=== PATIENT | female | born 1965 | race Caucasian/White ===

== ENCOUNTER 2017-06-20 13:09 | Observation (INO) ==
[2017-06-20] MEDS ORDERED: NITROGLYCERIN SL 0.4 MG TABLET SL PRN (13:40)
[2017-06-20] MEDS ORDERED: NITROGLYCERIN 2% OINT 1 INCH/GM PACK TOP STA (13:40)
[2017-06-20] MEDS ORDERED: MORPHINE 2 MG/1 ML SYRINGE IV PRN (13:40)
[2017-06-20] MEDS ORDERED: ASPIRIN 325 MG TABLET PO STA (13:40)
[2017-06-20] MEDS ORDERED: ONDANSETRON 4 MG/2 ML VIAL IV PRN (13:40)
--- NOTE | 2017-06-20 13:44 | Emergency Department Note ---
Nick Mars Emily, am scribing for, and in the presence of, John Tinajero MD 13:41. Tanvi Mars James D, MD, personally performed the services described in this documentation, ascribed by Blossom Romero in my presence, and it is both accurate and complete . Arrival - Arrival Chief Complaint: Chest Pain Stated Complaint: chest pains ED Nursing Triage Note: c/o squeezing pain in lt side of chest onset about 0600 this am Mode of Arrival: Ambulatory Limitations: No Limitations Source: Patient Time Seen by Provider: 06/20/17 13:33 - History of Present Illness HPI Narrative: Pt is a 51 y/o female who came to ED with c/o left sided chest pain that started last night but worsened today. Pt notes pain is nonradiating and is waxing and wanning with starting out as pinching pain first and now squeezing. Pt denies SOB, nausea or left arm pain. She denies having DM or HTN. PMHx of HLD. Pt was recently weened off of Adderall. Onset (ago): hour(s) Consistency: constant Severity: mild, moderate Severity scale (1-10): 4 Quality: aching (pinching ) Allergies/Adverse Reactions: Allergies Allergy/AdvReac Type Severity Reaction Status Date / Time No Known Allergies Allergy Verified 12/16/16 13:55 Home Medications: Home Medications Medication Instructions Recorded Confirmed Type Butalb/Acetaminophen/Caffeine 1 each PO Q6-8H #20 capsule 12/16/16 Rx [Fioricet 50-300-40 mg Capsule] Review of System - Review of System 12 point system: reviewed and no additional remarkable complaints except as stated - Review of System Constitutional: Absent: fever Respiratory: Absent: cough, respiratory distress Cardiovascular: Present: chest pain Gastrointestinal: Absent: abdominal pain, nausea, vomiting, diarrhea Musculoskeletal: Absent: arm pain, back pain Skin: Absent: rash Neurological: Absent: headache Medical,Surgical,& Family Hx - Medical History Psychological: History of: ADHD Endocrine: History of: Dyslipidemia, Thyroid Disorder (Hypothyroid) - Social History Smoking Status: Never smoker Frequency of Alcohol Use: None Type of Drug Use: None Marital Status: Lives With:: Spouse Functional capacity: independent ambulation Exam Vital Signs: Vital Signs Temperature 97.6 F 06/20/17 13:12 Pulse Rate 81 06/20/17 13:12 Respiratory Rate 18 06/20/17 13:12 Blood Pressure 156/92 06/20/17 13:12 O2 Sat by Pulse Oximetry 99 06/20/17 13:12 GENERAL: This is a well-nourished well-developed white female in no apparent distress. VITAL SIGNS: Reviewed HEENT: Head is atraumatic and normocephalic. Pupils are equal round react to light. Extraocular movements are intact. Oropharynx is benign with moist mucous membranes. NECK: Neck is soft and supple without tenderness. There are no masses. There is no lymphadenopathy. LUNGS: Lungs are clear to auscultation. Chest rises symmetrically. There is no chest wall tenderness. CV: Heart is regular rate and rhythm without murmurs rubs or gallops. ABDOMEN: Abdomen is soft, nontender to palpation. There are no abdominal abnormal masses palpated. There is no organomegaly. Bowel sounds are present and active. SKIN: Skin is warm and dry. No rash. EXTREMITIES: Patient has full range of motion without tenderness. There is no pedal edema. NEUROLOGIC: Awake alert and oriented 4. Cranial nerves II through XII are grossly intact. Motor is 5 over 5 in all extremities bilaterally. Course - Consultations Consultation #1: Discussed with hospitalist. Patient will be admitted to their service. Time: 15:39 Results - Labs CBC & BMP: 06/20/17 13:24 Lab Results: I have reviewed the patients labs Labs: Laboratory Tests 06/20/17 13:24 WBC 10.9 RBC 4.65 Hgb 13.4 Hct 39.7 MCV 85.4 L Plt Count 311 Laboratory Tests 06/20/17 13:24 Urine Color Yellow Urine Appearance Clear Urine pH 5.0 Ur Specific [place] 1.008 Urine Blood Negative Urine Nitrate Negative Urine Urobilinogen < 2.0 H Urine Leukocytes Trace Urine RBC 1 Urine WBC 1 Ur Squamous Epith Cells Occasional Urine Mucus Occasional - EKG EKG results: interpreted by ERMD - Impressions EKG: Normal sinus rhythm with rate of 70, normal ST-T waves. Normal axis. EKG #2: Normal sinus rhythm with a rate of 67, normal axis, normal ST-T waves. - Diagnostic Findings Procedure: Chest x-ray: image reviewed by me, report reviewed by me (No cardiomegaly, no pleural effusions, no infiltrates.) Disposition Clinical Impression: Chest pain Case discussed with: patient Disposition: Still a Patient Condition: Stable
[2017-06-20] MEDS ORDERED: NITROGLYCERIN 2% OINT 1 INCH/GM PACK TOP ONE (13:51)
[2017-06-20] MEDS ORDERED: ASPIRIN 325 MG TABLET ONE (13:52)
--- NOTE | 2017-06-20 13:57 | XRay Report ---
2 view chest. Indication: Chest pain. Comparison: January 12, 2011. The heart and mediastinal contours are unremarkable. The pulmonary vasculature is normal. There is no consolidation, pneumothorax, or pleural effusion. The osseous structures are unremarkable. Impression: No abnormality is seen. PROCEDURE INTERPRETED AT [facility] DEPARTMENT OF RADIOLOGY Final Report Signed by: Dr. Gloria Hernandez
[2017-06-20 14:00] LABS: Basophils # 0.1 10*3/uL (0.0-0.2); Basophils % 0.5 % (0.0-0.8); Eosinophils # 0.1 10*3/uL (0.0-0.87); Eosinophils % 0.5 % (0.00-10.9); Hematocrit 39.7 VOL% (35.7-47.0); Hemoglobin 13.4 GM/DL (12.0-16.0); Immature Granulocytes % 0.3 %; Immature Granulocytes Absolute 0.03 #; Lymphocytes # 3.4 10*3/uL (1.4-4.0); Lymphocytes % 31.4 % (21.3-54.2); Mean Corpuscular HGB Conc 33.8 GM/DL (32-36); Mean Corpuscular Hemoglobin 29 PG (27-34); Mean Corpuscular Volume 85.4 FL (87-102); Mean Platelet Volume 9.8 FL (9.6-12.0); Monocytes # 0.5 10*3/uL (0.11-0.8); Monocytes % 4.1 % (1.7-12.7); Neutrophils # 6.9 10*3/uL (1.4-7.4); Neutrophils % 63.2 % (38.7-73.9); Platelet Count 311 T/CUMM (130-400); Red Blood Count 4.65 MC/CUMM (3.8-5.5); Red Cell Distribution Width 13.2 % (9.3-17.3); White Blood Count 10.9 T/CUMM (4-12)
[2017-06-20 14:36] LABS: Apearance,Urine CLEAR (Clear); Bilirubin,Urine Negative (Negative); Blood, Urine Negative (Negative); Glucose,Urine (UA) Negative (Negative); Ketones,Urine Negative (Negative); Mucus,Urine Occasional /LPF (Occasional); Nitrite,Urine Negative (Negative); Protein,Urine Negative; RBC,Urine 1 /HPF (0-4); Squamous Epithelial Cell,Urine Occasional /HPF (0-10); Urine Color Yellow (Yellow); Urine Specific Gravity 1.008 (1.001-1.035); Urine Urobilinogen < 2.0 EU/DL (0.2-1.0); WBC,Urine 1 /HPF (0-6)
[2017-06-20 14:55] LABS: Barbiturates Screen,Urine Negative (Negative); Benzodiazepines Screen,Urine Negative (Negative); Cannabinoid Screen,Urine Negative (Negative); Opiate Screen,Urine Negative (Negative); Phencyclidine Screen,Urine Negative (Negative)
[2017-06-20 16:14] LABS: Calcium 9.3 MG/DL (8.5-10.1); Magnesium 2.4 MG/DL (1.8-2.4); Osmolality,Calculated 278.5 MOS/KG (273-304); Potassium 3.9 MMOL/L (3.5-5.1)
[2017-06-20 16:19] LABS: Troponin I Only < 0.015 NG/ML (0.00-0.045)
--- NOTE | 2017-06-20 16:24 | Hospitalist History & Physical ---
<Caleb Maldonado - Last Filed: 06/20/17 16:10> Assessment and Plan - Time spent with patient Time spent with patient: Greater than 30 minutes (1) Chest pain Status: Acute Assessment and plan: Admit to telemetry for observation. Serial troponins and EKGs. Repeat CBC and BMP in a.m. Possible echocardiogram. Current Visit: Yes (2) Hypothyroid Status: Acute Assessment and plan: Continue home medications Current Visit: Yes (3) ADHD (attention deficit hyperactivity disorder) Status: Acute Assessment and plan: Patient notes a history of ADHD and recently being weaned off of her Adderall. Current Visit: Yes History of Present Illness Chief complaint: chest pain History of present illness: Ms. Guzman is a 51 year old white female with risk factors significant for hyperlipidemia, hypothyroidism and ADHD who presents to the ED today with complaints of progressively worsening chest pain having onset last night around 2200. The patient states that the pain initially began as "needle pricking" in her left chest. She ignored the pain thinking it would subside and went on to work this morning. She reports that the pain progressed to a "intermittently squeezing pressure" localized to the left chest wall. 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 She went home before she and her decided to come to the ED. On exam, the patient is in moderate distress and reports and shooting pain in her left anterior neck now. She admittedly has a "high tolerance for pain" but rates her pain as a 10/ 10 now. She denies headache, fever, change in vision, diaphoresis, SOB, pain on inspiration, abdominal pain, change in appetite, N/V, BRBPR, numbness or tingling in the upper and lower extremities bilaterally. Lab work so far is unremarkable. EKG shows NSR. CXR shows no acute cardiopulmonary abnormality. Case has been discussed with Dr. Tinajero, ER physician, and Dr. Manuel, admitting physician, and the patient will be admitted for observation and treatment. She is a FULL CODE. Home medications have been reviewed and reconciled. Home Medications Medication Instructions Recorded Confirmed Type Butalb/Acetaminophen/Caffeine 1 each PO Q6-8H #20 capsule 12/16/16 Rx [Fioricet 50-300-40 mg Capsule] Allergies Allergy/AdvReac Type Severity Reaction Status Date / Time No Known Allergies Allergy Verified 12/16/16 13:55 Medical,Surgical,& Family Hx - Medical History Psychological: History of: ADHD Endocrine: History of: Dyslipidemia, Thyroid Disorder (Hypothyroid) - Family History Family History: Reports;: Family Hypertension - Social History Smoking Status: Never smoker Frequency of Alcohol Use: Rarely Type of Drug Use: None Marital Status: Lives With:: Spouse Functional capacity: independent ambulation 12 point system: reviewed and no additional remarkable complaints except as stated Exam - Constitutional Vitals: Period Temp Pulse Resp BP Sys/Schneider Pulse Ox Last 24 Hr 97.6 F-97.6 F 81-81 18-18 156-156/92-92 99 Exam: General appearance: overweight, no acute distress - Head Head exam: Present: normocephalic, atraumatic - Eye Eye exam: Present: EOMI. Absent: conjunctival injection, nystagmus Pupils: Present: LEN, normal accommodation - ENT ENT exam: Present: normal exam, normal external ear exam - Neck Neck exam: Present: normal inspection. Absent: lymphadenopathy, tenderness, thyromegaly - Respiratory Respiratory exam: Present: clear to auscultation bilaterally. Absent: rales, rhonchi, wheezes - Cardiovascular Cardiovascular exam: Present: regular rate and rhythm. Absent: carotid bruit, gallop, rubs - GI/Abdominal GI/Abdominal exam: Present: normal bowel sounds. Absent: ascites, distended, mass - Extremities Exam Extremities exam: Present: normal inspection, normal capillary refill. Absent: edema - Back Exam Back exam: Absent: CVA tenderness (L), CVA tenderness (R) - Neurological Exam Neurological exam: Present: alert, oriented X3, CN II-XII intact, reflexes normal - Psychiatric Psychiatric exam: Present: normal affect, normal mood - Skin Skin exam: Present: normal color, warm, dry Results - Labs CBC & BMP: 06/20/17 13:24 Lab Results: I have reviewed the past 24 hour labs - EKG EKG results: interpreted by JAK, sinus rhythm - Diagnostic Findings Procedure: Chest x-ray: image reviewed by me, report reviewed by me ( unremarkable) <Rodney Manuel - Last Filed: 06/20/17 17:01> History of Present Illness History of present illness: Ms. Guzman is a 51 year old female Exam - Constitutional Vitals: Period Temp Pulse Resp BP Sys/Schneider Pulse Ox Last 24 Hr 97.6 F-97.6 F 81-81 18-18 156-156/92-92 99 Results - Labs CBC & BMP: 06/20/17 13:24 06/20/17 13:24 - Impressions Patient seen and examined. I have reviewed H&P by PORSPER Maldonado, and I agree with the information. Diagnosis: Acute chest pain, likely non cardiac: agree with evaluation for cardiac ischemia. DVT and GI prophalaxis.
[2017-06-20] MEDS ORDERED: ACETAMINOPHEN 325 MG TABLET PO PRN (16:34)
[2017-06-20] MEDS ORDERED: MAGNESIUM SULF RIDER 2 GM in PREMIX 1 EACH IV PRN (16:34)
[2017-06-20] MEDS ORDERED: MAGNESIUM SULF RIDER 4 GM in PREMIX 1 EACH IV PRN (16:34)
[2017-06-20] MEDS ORDERED: POTASSIUM CHLORIDE 20 MEQ TABLET PO PRN ×2 (16:34)
--- NOTE | 2017-06-20 16:43 | Hospitalist History & Physical ---
History of Present Illness Chief complaint: chest pain History of present illness: Ms. Guzman is a 51 year old female who presents with non-radiating, squeezing , left sided chest pain that started last night while in bed. Chest pain is constant but waxes and wanes. It got worst today while at work. She took two aspirin and decided to come into the ER for further evaluation. She denies any SOB/n,v/diaphoresis/fevers/chills/cough/recent prolonged car or plane ride, recent heavy lifting, and association with eating. She denies any excessive belching. She has been eating and drinking without any problems. She denies any calf pain. While in the ER, she was given nitrobid ointment and aspirin. Blood pressure was initially elevated but it has improved. Home Medications Medication Instructions Recorded Confirmed Type Butalb/Acetaminophen/Caffeine 1 each PO Q6-8H #20 capsule 12/16/16 Rx [Fioricet 50-300-40 mg Capsule] Allergies Allergy/AdvReac Type Severity Reaction Status Date / Time No Known Allergies Allergy Verified 12/16/16 13:55 Medical,Surgical,& Family Hx - Medical History Psychological: History of: ADHD Neurology: History of: Migraine Endocrine: History of: Dyslipidemia, Thyroid Disorder (Hypothyroid) - Surgical History Abdominal Surgeries: Surgical HX of: Appendectomy, Cholecystectomy Reproductive Surgeries: Surgical HX of;: Hysterectomy - Family History Family History: Reports;: Family Diabetes, Family Hypertension Denies;: Family Heart Disease, Family Stroke - Social History Smoking Status: Never smoker Frequency of Alcohol Use: Rarely Type of Drug Use: None Marital Status: Functional capacity: independent ambulation 12 point system: reviewed and no additional remarkable complaints except as stated (reviewed an no additional remarkable complaints) - Constitutional Constitutional: Present: as per HPI Exam - Constitutional Vitals: Period Temp Pulse Resp BP Sys/Schneider Pulse Ox Last 24 Hr 97.6 F-97.6 F 81-81 18-18 156-156/92-92 99 General appearance: no acute distress, over weight - Head Head exam: Present: normal inspection, normocephalic, atraumatic - Eye Eye exam: Present: EOMI Pupils: Present: LEN - ENT ENT exam: Present: normal exam, normal oropharynx - Respiratory Respiratory exam: Present: clear to auscultation bilaterally. Absent: rales, rhonchi, stridor - Cardiovascular Cardiovascular exam: Present: regular rate and rhythm. Absent: diastolic murmur , systolic murmur - GI/Abdominal GI/Abdominal exam: Present: normal bowel sounds, soft. Absent: tenderness, rebound - Extremities Exam Extremities exam: Present: other (no calf tenderness). Absent: edema - Neurological Exam Neurological exam: Present: alert, oriented X3 - Psychiatric Psychiatric exam: Present: normal affect, normal mood - Skin Skin exam: Present: normal color. Absent: rash Results - Labs CBC & BMP: 06/20/17 13:24 06/20/17 13:24 - EKG EKG results: WNL - Impressions 1. Acute chest pain, sounds to be non cardiac. So far EKG shows no ischemic changes. 1st troponin level is normal. 2. Elevated CPK: mild and asymptomatic; likely 2nd to statin use; she does not know what statin she is on but is on one; monitor levels 3. Hyperglycemia: check hba1c 4. Elevated blood pressure: now better with nitropaste; monitor 5. Co morbid conditions: h/o hypothyroidism, dyslipidemia Plan: admit to telemetry; evaluate for cardiac ischemia; if rule out, outpatient stress test; trend CPK levels as well; fasting lipids; home medications as appropriate. DVT and GI prophalaxis. CODE: FULL Disposition: expect a short stay - Diagnostic Findings Procedure: Chest x-ray: image reviewed by me (no acute abnormality)
[2017-06-20] MEDS: ENOXAPARIN 40 MG/0.4 ML SYRINGE SUBCUT SCH (17:35)
[2017-06-20] MEDS: SODIUM CHLORIDE 0.45% 1,000 ML IV SCH (17:35)
[2017-06-20] MEDS: ASPIRIN EC 81 MG TABLET PO SCH (17:38)
[2017-06-21] MEDS: SODIUM CHLORIDE 0.45% 1,000 ML IV SCH ×4 (02:49→23:19)
[2017-06-21 05:07] LABS: Basophils % 0.5 % (0.0-0.8); Eosinophils # 0.2 10*3/uL (0.0-0.87); Eosinophils % 1.8 % (0.00-10.9); Hematocrit 38.1 VOL% (35.7-47.0); Hemoglobin 12.6 GM/DL (12.0-16.0); Immature Granulocytes % 0.1 %; Immature Granulocytes Absolute 0.01 #; Lymphocytes # 3.2 10*3/uL (1.4-4.0); Lymphocytes % 39.2 % (21.3-54.2); Mean Corpuscular HGB Conc 33.1 GM/DL (32-36); Mean Corpuscular Hemoglobin 28 PG (27-34); Mean Corpuscular Volume 85.8 FL (87-102); Mean Platelet Volume 9.8 FL (9.6-12.0); Monocytes # 0.5 10*3/uL (0.11-0.8); Neutrophils # 4.3 10*3/uL (1.4-7.4); Neutrophils % 52.4 % (38.7-73.9); Platelet Count 251 T/CUMM (130-400); Red Blood Count 4.44 MC/CUMM (3.8-5.5); Red Cell Distribution Width 13.2 % (9.3-17.3); White Blood Count 8.2 T/CUMM (4-12)
[2017-06-21 05:47] LABS: Calcium 8.6 MG/DL (8.5-10.1); Osmolality,Calculated 276.7 MOS/KG (273-304); Potassium 4.3 MMOL/L (3.5-5.1)
[2017-06-21 05:53] LABS: Risk Ratio 5.45; VLDL CHOLESTEROL 90.6 MG/DL
--- NOTE | 2017-06-21 06:03 | EKG Report ---
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
--- NOTE | 2017-06-21 07:17 | EKG Report ---
Stationary ECG Study 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
[2017-06-21] MEDS: ASPIRIN EC 81 MG TABLET PO SCH (09:37)
[2017-06-21] MEDS: PANTOPRAZOLE 40 MG TABLET PO SCH (09:39)
[2017-06-21 14:15] LABS: Free T4 (Free Thyroxine) 0.82 NG/DL (0.76-1.46); Thyroid Stimulating Hormone 0.556 uIU/ml (0.358-3.74)
[2017-06-21] MEDS: ENOXAPARIN 40 MG/0.4 ML SYRINGE SUBCUT SCH (16:27)
--- NOTE | 2017-06-21 16:37 | Hospitalist Progress Note ---
Assessment and Plan - Time spent with patient Time spent with patient: Greater than 30 minutes (1) Chest pain Status: Acute Assessment and plan: 06/21/2017: I have low clinical suspicion that patient's chest pain episode represents acute coronary syndrome. Recommend continued telemetry monitoring, cycle cardiac enzymes, follow-up repeat 12-lead EKG and echocardiogram. I requested cardiology consultation. Patient requests diagnostic left heart catheterization because she is concerned with the false negative nuclear medicine stress test rate. She is without any chest discomfort at the time of my interview and exam. Her is at bedside at the time of my interview and exam today. Patient's d-dimer is normal range making acute thromboembolism less likely to be the cause of patient's chest pain complaints. Current Visit: Yes (2) Hypothyroid Status: Chronic Assessment and plan: 06/21/2017: Patient has normal range TSH 0.556 and free T4 0.82. She has a history of hypothyroidism but records do not indicate that she takes Synthroid supplementation. Clarify this history. Current Visit: Yes (3) Dyslipidemia Status: Chronic Assessment and plan: 06/21/2017: Patient denies known history of dyslipidemia. Patient's fasting lipid panel measured today total cholesterol 218, LDL 115, HDL 40, triglycerides 453. I recommend the patient receive statin dosing and repeat lipid panel within the next 3 months. She should also receive instructions to improve dietary modification to further reduce LDL, total cholesterol, and triglycerides. Current Visit: Yes (4) ADHD (attention deficit hyperactivity disorder) Status: Chronic Assessment and plan: 06/21/2017: Patient states that she previously received Adderall but has not taken any stimulant medications since March 2017. She states that it was her personal choice to discontinue Adderall. Current Visit: Yes Hospitalist: Subjective Interval history: 06/21/2017: Patient is a 51-year-old female admitted for evaluation of squeezing left chest pressure episode. 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 Her known ischemic heart disease risk factors include dyslipidemia only. She previously smoked cigarettes but discontinued many years ago. Her chest pain resolved spontaneously. She cannot identify any precipitating or relieving factors. Exam - Constitutional Vitals: Period Temp Pulse Resp BP Sys/Schneider Pulse Ox Last 24 Hr 97.0 F-97.9 F 60-83 16-20 112-138/65-77 93-100 General appearance: normal weight - Head Head exam: Present: normal inspection - Eye Eye exam: Present: EOMI - ENT ENT exam: Present: normal exam - Neck Neck exam: Absent: meningismus, tenderness - Respiratory Respiratory exam: Present: clear to auscultation bilaterally. Absent: rales, stridor, wheezes - Cardiovascular Cardiovascular exam: Present: regular rate and rhythm, other (No extrasystole or significant murmur audible) - GI/Abdominal GI/Abdominal exam: Present: normal bowel sounds, soft. Absent: tenderness, rebound - Extremities Exam Extremities exam: Absent: calf tenderness, edema - Back Exam Back exam: Absent: CVA tenderness (L), CVA tenderness (R) - Neurological Exam Neurological exam: Present: alert, oriented X3 - Psychiatric Psychiatric exam: Present: normal affect, normal mood - Skin Skin exam: Present: normal color, warm. Absent: rash Results - Labs CBC & BMP: 06/21/17 04:46 06/21/17 04:46
--- NOTE | 2017-06-21 19:16 | Cardiology Consult Note ---
Jignesh Mars April, RN, am scribing for, and in the presence of, Jai Vasquez MD 19:14. Assessment and Plan - Time spent with patient Time spent with patient: Greater than 30 minutes (Due to assessment, planning, documentation, medication review) (1) Chest pain Status: Acute Assessment and plan: Initial assessment and plan June 21, 2017: Differential diagnosis of her chest pain would include coronary disease, GI, muscle skeletal cause. She is not tender in her chest. She is very worried this could be coronary disease. Her initial EKG had some equivocal repolarization changes Plan/records: Treat as if this may be ACS Follow EKGs Check echo Doppler I discussed with her about a heart catheter vs a treadmill/Cardiolite. She is considering it. She wants to think about it overnight. Will decide the morning Hydrate overnight N.p.o. after midnight. She may want to go ahead with heart cath to "know for sure". Lipids may need to be treated, especially in light of elevated hemoglobin A1c I will rediscuss with the patient in a.m. and we can decide what to do next. Thank you for allowing me to participate in this patient's care Current Visit: Yes (2) Dyslipidemia Status: Chronic Current Visit: Yes (3) ADHD (attention deficit hyperactivity disorder) Status: Chronic Current Visit: Yes (4) Hypothyroid Status: Chronic Current Visit: Yes History of Present Illness - Data of Consult Patient: new to practice Consult date: 06/21/17 Requesting Physician: Davis Dasilva III Primary care physician: Caridad Olivares - Consult Narrative Reason for consult: Chest pain History of present illness: Lead Database Administrator: Jr Vasquez PCP: Caridad Olivares NP Ms. 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 In 1998 she was referred for a PET scan related to some chest pain, but she says that it was found to be okay and she never had to have any follow-up. She denies ever having a heart catheterization. She has been on Adderall for 30 years and has been weaned off of this since early April of this year. Medical history includes ADHD, dyslipidemia, and thyroid disorder. Family history is positive for mother with cancer and diabetes. Surgical history includes appendectomy, hysterectomy, cholecystectomy, tonsillectomy. She reports she is a lifetime non-smoker and rarely uses alcohol. Two nights before admission she reports having some "sharp pinpricks" in the left side of her chest. Yesterday she began to have a squeezing type pressure to the left side of her chest. She denies any radiation and rates it a 10 on a scale of 1-10. She noted no triggers or alleviators. The pain is reproducible with deep breathing or palpation. She also reports that she was diaphoretic and nauseated with this. She denies any shortness of breath. She presented to the emergency department for further evaluation and said her pain did ease up some after the nitroglycerin patch was placed. However it continued to bother her some. She reports after IV fluid was started it continued to ease up and this morning became completely pain free. EKG shows sinus rhythm with heart rate of 67 and no evidence of ST changes. Her blood pressure was slightly elevated on admission at 156/92, is improved since then, it is now 133/77. cyber incident analyst currently shows sinus rhythm with heart rates in the 80s. Troponins been negative 3. D-dimer was negative. Cholesterol and triglycerides are elevated. She reports she has been on a statin at home but is unsure what it is. Lipitor 20 mg nightly has been started. Hemoglobin A1c noted to be elevated at 6.9. All other labs have been unremarkable. Chest x- ray without abnormality noted. Today she is seen resting in bed. She is awake alert and pleasant. She denies any chest pain, shortness of breath, palpitations, or dizziness. An echocardiogram has been ordered. CC: Davis Dasilva III - Home Medications and Allergies Home Medications: Home Medications Medication Instructions Recorded Confirmed Type Butalb/Acetaminophen/Caffeine 1 each PO Q6-8H #20 capsule 12/16/16 Rx [Fioricet 50-300-40 mg Capsule] Allergies/Adverse Reactions: Allergies Allergy/AdvReac Type Severity Reaction Status Date / Time No Known Allergies Allergy Verified 12/16/16 13:55 - Constitutional Constitutional: Present: as per HPI - EENT Eyes: Present: requires corrective lense. Absent: blurry vision Ears: Present: tinnitus. Absent: decreased hearing, ear pain Nose, mouth and throat: Absent: dysphagia, epistaxis, headache(s), neck pain - Cardiovascular Cardiovascular: Present: chest pain at rest, chest pain with activity, diaphoresis. Absent: dyspnea, dyspnea on exertion, edema, radiating jaw, neck or arm pain, lightheadedness, orthopnea, palpitations - Respiratory Respiratory: Absent: cough, dyspnea, hemoptysis, dyspnea on exertion, wheezing - Gastrointestinal Gastrointestinal: Present: diarrhea, nausea. Absent: abdominal pain, constipation, hematemesis, hematochezia, melena, vomiting - Genitourinary Genitourinary: Absent: dysuria, hematuria - Musculoskeletal Musculoskeletal: Absent: back pain, limited range of motion, muscle weakness - Neurological Neurological: Absent: abnormal gait, abnormal speech, confusion, dizziness, frequent falls, syncope - Psychiatric Psychiatric: Absent: anxiety, depression - Hematologic/Lymphatic Hematologic/Lymphatic: Present: easy bruising. Absent: easy bleeding Medical,Surgical,& Family Hx - Medical History Psychological: History of: ADHD Endocrine: History of: Dyslipidemia, Thyroid Disorder (Hypothyroid) - Surgical History HEENT Surgeries: Surgical HX of: Tonsilectomy & Adenoidectomy Abdominal Surgeries: Surgical HX of: Appendectomy, Cholecystectomy Reproductive Surgeries: Surgical HX of;: Hysterectomy - Family History Family History: Reports;: Family Cancer (MOTHER- BREAST CA), Family Diabetes ( MOTHER) - Social History Smoking Status: Never smoker Have you smoked in the last 12 months: No Frequency of Alcohol Use: Rarely Type of Drug Use: None Marital Status: Lives With:: Spouse Functional capacity: independent ambulation Physical Examination Vital Signs Temp Pulse Resp BP Pulse Ox 97.6 F 81 18 156/92 99 06/20/17 13:12 06/20/17 13:12 06/20/17 13:12 06/20/17 13:12 06/20/17 13:12 General: Present: Appears Well, No Apparent Distress HEENT: Present: PERRL, Mucus Membranes Moist Neck: Present: Supple Neck, Midline Trachea, No Bruit Cardiac: Present: Reg Rate and Rhythm, No Murmur Lungs: Present: Normal Breath Sounds, No Wheeze, Rales, Rhonchi Neuro: Absent: Resting Tremor, Essential Tremor Abdomen: Present: Soft, Active Bowel Sounds, Non-Tender. Absent: Distended Skin: Present: Bruising. Absent: Rash, Suspicious Lesions Extremities: Present: No Edema, Normal Upper Extr. Pulses, Normal Lower Extr. Pulses Result/EKG - Labs CBC & BMP: 06/21/17 04:46 06/21/17 04:46 Lab Results: I have reviewed the past 24 hour labs Labs: Laboratory Results - last 24 hr 06/20/17 06/20/17 06/20/17 13:24 13:24 13:24 WBC 10.9 RBC 4.65 Hgb 13.4 Hct 39.7 MCV 85.4 L MCH 29 MCHC 33.8 RDW 13.2 Plt Count 311 MPV 9.8 Neut % (Auto) 63.2 Lymph % (Auto) 31.4 [place] % (Auto) 4.1 Eos % (Auto) 0.5 Baso % (Auto) 0.5 Neut # (Auto) 6.9 Lymph # (Auto) 3.4 [place] # (Auto) 0.5 Eos # (Auto) 0.1 Baso # (Auto) 0.1 Immature Gran % 0.3 Nucleated RBC % 0.0 Immature Gran # 0.03 Nucleated RBCs # 0.00 Immature Plt Fraction 0.0 Sodium Potassium Chloride Carbon Dioxide Anion Gap BUN Creatinine GFR Calculation BUN/Creatinine Ratio Glucose Hemoglobin A1c Calculated Osmolality Calcium Magnesium Total Creatine Kinase CK-MB (CK-2) Troponin I Triglycerides Cholesterol LDL Cholesterol VLDL Cholesterol HDL Cholesterol Heart Disease Risk Ratio Urine Color Yellow Urine Appearance Clear Urine pH 5.0 Ur Specific [place] 1.008 Urine Protein Negative Urine Glucose (UA) Negative Urine Ketones Negative Urine Blood Negative Urine Nitrate Negative Urine Bilirubin Negative Urine Urobilinogen < 2.0 H Urine Leukocytes Trace Urine RBC 1 Urine WBC 1 Ur Squamous Epith Cells Occasional Urine Mucus Occasional Ur Culture Indicated? Not indicated Urine Opiates Screen Negative Ur Barbiturates Screen Negative Ur Phencyclidine Scrn Negative U Amphetamine/Methamph Negative U Benzodiazepines Scrn Negative U Cocaine Metab Screen Negative U Cannabinoids Screen Negative 06/20/17 06/20/17 06/20/17 13:24 13:24 13:24 WBC RBC Hgb Hct MCV MCH MCHC RDW Plt Count MPV Neut % (Auto) Lymph % (Auto) [place] % (Auto) Eos % (Auto) Baso % (Auto) Neut # (Auto) Lymph # (Auto) [place] # (Auto) Eos # (Auto) Baso # (Auto) Immature Gran % Nucleated RBC % Immature Gran # Nucleated RBCs # Immature Plt Fraction Sodium 139 Potassium 3.9 Chloride 104 Carbon Dioxide 29 Anion Gap 9.9 BUN 13 Creatinine 0.90 GFR Calculation 74 BUN/Creatinine Ratio 14.00 Glucose 130 H Hemoglobin A1c 6.9 H Calculated Osmolality 278.5 Calcium 9.3 Magnesium 2.4 Total Creatine Kinase 256 H CK-MB (CK-2) 3.8 H Troponin I < 0.015 Triglycerides Cholesterol LDL Cholesterol VLDL Cholesterol HDL Cholesterol Heart Disease Risk Ratio Urine Color Urine Appearance Urine pH Ur Specific [place] Urine Protein Urine Glucose (UA) Urine Ketones Urine Blood Urine Nitrate Urine Bilirubin Urine Urobilinogen Urine Leukocytes Urine RBC Urine WBC Ur Squamous Epith Cells Urine Mucus Ur Culture Indicated? Urine Opiates Screen Ur Barbiturates Screen Ur Phencyclidine Scrn U Amphetamine/Methamph U Benzodiazepines Scrn U Cocaine Metab Screen U Cannabinoids Screen 06/20/17 06/20/17 06/20/17 17:33 19:21 22:48 WBC RBC Hgb Hct MCV MCH MCHC RDW Plt Count MPV Neut % (Auto) Lymph % (Auto) [place] % (Auto) Eos % (Auto) Baso % (Auto) Neut # (Auto) Lymph # (Auto) [place] # (Auto) Eos # (Auto) Baso # (Auto) Immature Gran % Nucleated RBC % Immature Gran # Nucleated RBCs # Immature Plt Fraction Sodium Potassium Chloride Carbon Dioxide Anion Gap BUN Creatinine GFR Calculation BUN/Creatinine Ratio Glucose Hemoglobin A1c Calculated Osmolality Calcium Magnesium 2.6 H Total Creatine Kinase CK-MB (CK-2) Troponin I < 0.015 < 0.015 Triglycerides Cholesterol LDL Cholesterol VLDL Cholesterol HDL Cholesterol Heart Disease Risk Ratio Urine Color Urine Appearance Urine pH Ur Specific [place] Urine Protein Urine Glucose (UA) Urine Ketones Urine Blood Urine Nitrate Urine Bilirubin Urine Urobilinogen Urine Leukocytes Urine RBC Urine WBC Ur Squamous Epith Cells Urine Mucus Ur Culture Indicated? Urine Opiates Screen Ur Barbiturates Screen Ur Phencyclidine Scrn U Amphetamine/Methamph U Benzodiazepines Scrn U Cocaine Metab Screen U Cannabinoids Screen 06/21/17 06/21/17 06/21/17 04:46 04:46 04:46 WBC 8.2 RBC 4.44 Hgb 12.6 Hct 38.1 MCV 85.8 L MCH 28 MCHC 33.1 RDW 13.2 Plt Count 251 MPV 9.8 Neut % (Auto) 52.4 Lymph % (Auto) 39.2 [place] % (Auto) 6.0 Eos % (Auto) 1.8 Baso % (Auto) 0.5 Neut # (Auto) 4.3 Lymph # (Auto) 3.2 [place] # (Auto) 0.5 Eos # (Auto) 0.2 Baso # (Auto) 0.0 Immature Gran % 0.1 Nucleated RBC % 0.0 Immature Gran # 0.01 Nucleated RBCs # 0.00 Immature Plt Fraction 0.0 Sodium 138 Potassium 4.3 Chloride 106 Carbon Dioxide 28 Anion Gap 8.3 BUN 16 Creatinine 0.70 GFR Calculation 100 BUN/Creatinine Ratio 22.00 H Glucose 111 H Hemoglobin A1c 6.8 H Calculated Osmolality 276.7 Calcium 8.6 Magnesium Total Creatine Kinase CK-MB (CK-2) Troponin I Triglycerides Cholesterol LDL Cholesterol VLDL Cholesterol HDL Cholesterol Heart Disease Risk Ratio Urine Color Urine Appearance Urine pH Ur Specific [place] Urine Protein Urine Glucose (UA) Urine Ketones Urine Blood Urine Nitrate Urine Bilirubin Urine Urobilinogen Urine Leukocytes Urine RBC Urine WBC Ur Squamous Epith Cells Urine Mucus Ur Culture Indicated? Urine Opiates Screen Ur Barbiturates Screen Ur Phencyclidine Scrn U Amphetamine/Methamph U Benzodiazepines Scrn U Cocaine Metab Screen U Cannabinoids Screen 06/21/17 04:46 WBC RBC Hgb Hct MCV MCH MCHC RDW Plt Count MPV Neut % (Auto) Lymph % (Auto) [place] % (Auto) Eos % (Auto) Baso % (Auto) Neut # (Auto) Lymph # (Auto) [place] # (Auto) Eos # (Auto) Baso # (Auto) Immature Gran % Nucleated RBC % Immature Gran # Nucleated RBCs # Immature Plt Fraction Sodium Potassium Chloride Carbon Dioxide Anion Gap BUN Creatinine GFR Calculation BUN/Creatinine Ratio Glucose Hemoglobin A1c Calculated Osmolality Calcium Magnesium Total Creatine Kinase CK-MB (CK-2) Troponin I Triglycerides 453 H Cholesterol 218 H LDL Cholesterol 115.0 VLDL Cholesterol 90.6 HDL Cholesterol 40 Heart Disease Risk Ratio 5.45 Urine Color Urine Appearance Urine pH Ur Specific [place] Urine Protein Urine Glucose (UA) Urine Ketones Urine Blood Urine Nitrate Urine Bilirubin Urine Urobilinogen Urine Leukocytes Urine RBC Urine WBC Ur Squamous Epith Cells Urine Mucus Ur Culture Indicated? Urine Opiates Screen Ur Barbiturates Screen Ur Phencyclidine Scrn U Amphetamine/Methamph U Benzodiazepines Scrn U Cocaine Metab Screen U Cannabinoids Screen - Diagnostic Findings Procedure: Chest x-ray: report reviewed by me - EKG EKG results: interpreted by me EKG shows: sinus rhythm IChristina Dale, MD, personally performed the services described in this documentation, ascribed by Mary Egan RN in my presence, and it is both accurate and complete .
--- NOTE | 2017-06-21 21:44 | ECHO Report ---
Natalya Guzman Exam Date: 06/21/2017 13:46 Referring Physician: Technologist: Stephanie Jacinto RDCS Age: 51 Ht (in): 63 Wt (lb): 155 Gender: F Exam Location: [facility] Echo Indications: Chest pain, unspecified BP: 133 / 77 HR: 67 Rhythm: Sinus Technical Quality: Good IMPRESSIONS Left ventricular ejection fraction is estimated at 60 %. Mild atrial enlargement in apical view (elongated LA). Trace to mild mitral valve regurgitation. Trace to mild tricuspid valve regurgitation. Tricuspid regurgitation velocities suggest a PAP of 34 mmHg. Normal pericardium without effusion. MEASUREMENTS (Male / Female) Normal Values 2D ECHO LV Diastolic Diameter PLAX 4.1 cm 4.2 - 5.9 / 3.9 - 5.3 cm LV Systolic Diameter PLAX 2.6 cm LV Fractional Shortening PLAX 36.8 % IVS Diastolic Thickness 0.9 cm 0.6 - 1.0 / 0.6 - 0.9 cm LVPW Diastolic Thickness 0.9 cm 0.6 - 1.0 / 0.6 - 0.9 cm RV Internal Dim ED PLAX 3.1 cm Aortic Root Diameter 2.9 cm LA Systolic Diameter LX 3.5 cm 3.0 - 4.0 / 2.7 - 3.8 cm DOPPLER TR Peak Velocity 246.0 cm/s TR Peak Gradient 24.2 mmHg FINDINGS Left Ventricle Normal left ventricular cavity size. Normal left ventricular wall thickness. Left ventricular ejection fraction is estimated at 60 %. Right Ventricle The right ventricle is normal in size and function. Right Atrium Mild atrial enlargement in apical view (elongated RA). Left Atrium Mild atrial enlargement in apical view (elongated LA). Mitral Valve Morphologically normal mitral valve. Trace to mild mitral valve regurgitation. Aortic Valve Morphologically normal aortic valve without significant sclerosis or stenosis. There is no aortic regurgitation. Tricuspid Valve Morphologically normal tricuspid valve. Trace to mild tricuspid valve regurgitation. Tricuspid regurgitation velocities suggest a PAP of 34 mmHg. Pulmonic Valve Morphologically normal pulmonic valve without significant stenosis. There is no pulmonic regurgitation. Pericardium Normal pericardium without effusion. Aorta Normal ascending aorta dimension. Jai Vasquez MD (Electronically Signed) Final Date: 21 June 2017 21:43
[2017-06-21] MEDS: ATORVASTATIN 20 MG TABLET PO SCH (21:55)
[2017-06-22 06:00] LABS: Basophils % 0.6 % (0.0-0.8); Eosinophils # 0.2 10*3/uL (0.0-0.87); Eosinophils % 2.8 % (0.00-10.9); Hematocrit 38.9 VOL% (35.7-47.0); Hemoglobin 13.1 GM/DL (12.0-16.0); Immature Granulocytes % 0.3 %; Immature Granulocytes Absolute 0.02 #; Lymphocytes % 42.5 % (21.3-54.2); Mean Corpuscular HGB Conc 33.7 GM/DL (32-36); Mean Corpuscular Hemoglobin 29 PG (27-34); Mean Corpuscular Volume 85.9 FL (87-102); Mean Platelet Volume 9.8 FL (9.6-12.0); Monocytes # 0.5 10*3/uL (0.11-0.8); Monocytes % 6.9 % (1.7-12.7); Neutrophils # 3.4 10*3/uL (1.4-7.4); Neutrophils % 46.9 % (38.7-73.9); Platelet Count 272 T/CUMM (130-400); Red Blood Count 4.53 MC/CUMM (3.8-5.5); Red Cell Distribution Width 13.3 % (9.3-17.3); White Blood Count 7.1 T/CUMM (4-12)
[2017-06-22 06:24] LABS: Calcium 8.8 MG/DL (8.5-10.1); Osmolality,Calculated 279.4 MOS/KG (273-304); Potassium 4.2 MMOL/L (3.5-5.1)
[2017-06-22] MEDS: SODIUM CHLORIDE 0.45% 1,000 ML IV SCH ×3 (08:00→18:34)
--- NOTE | 2017-06-22 09:26 | Cardiology Progress Note ---
I, Mary Egan, RN, am scribing for, and in the presence of, Jai Vasquez MD 09:26. Assessment and Plan (1) Chest pain Status: Acute Assessment and plan: Initial assessment and plan June 21, 2017: Differential diagnosis of her chest pain would include coronary disease, GI, muscle skeletal cause. She is not tender in her chest. She is very worried this could be coronary disease. Her initial EKG had some equivocal repolarization changes Plan/records: Treat as if this may be ACS Follow EKGs Check echo Doppler I discussed with her about a heart catheter vs a treadmill/Cardiolite. She is considering it. She wants to think about it overnight. Will decide the morning Hydrate overnight N.p.o. after midnight. She may want to go ahead with heart cath to "know for sure". Lipids may need to be treated, especially in light of elevated hemoglobin A1c I will rediscuss with the patient in a.m. and we can decide what to do next. Assessment and plan June 22, 2017: The patient has had no more chest pain. we discussed our options of a heart catheter treadmill Because of her risk factors for coronary disease, the significant, progressive symptoms, and her concern about CAD there is a "need to know". It is been decided today that she would have a heart cath. I conferred care with Dr. Michael Stevens about the patient for heart cath. Because of her family member with hemorrhagic brain bleed and the daughter needing to get a person to take over her sitting for this person so she can be here, she requested that her cath be done later in the morning. I discussed that with Dr. Michael eVras. Current Visit: Yes (2) Dyslipidemia Status: Chronic Current Visit: Yes (3) ADHD (attention deficit hyperactivity disorder) Status: Chronic Current Visit: Yes (4) Hypothyroid Status: Chronic Current Visit: Yes Cardiology - PN: Subj Interval history: Administrative Operations Coordinator: New to Dr. Vasquez PCP: Caridad Olivares NP Summary: Ms. Guzman is a 51 year old female who has never seen a bite block maker. In 1998 she was referred for a PET scan related to some chest pain, but she says that it was found to be okay and she never had to have any follow-up. She denies ever having a heart catheterization. She has been on Adderall for 30 years and has been weaned off of this since early April of this year. Medical history includes ADHD, dyslipidemia, and thyroid disorder. Family history is positive for mother with cancer and diabetes. Surgical history includes appendectomy, hysterectomy, cholecystectomy, tonsillectomy. She reports she is a lifetime non-smoker and rarely uses alcohol. Two nights before admission she reports having some "sharp pinpricks" in the left side of her chest. The day before admission, she began to have a squeezing type pressure to the left side of her chest. She denies any radiation and rates it a 10 on a scale of 1-10. She noted no triggers or alleviators. The pain is reproducible with deep breathing or palpation. She also reports that she was diaphoretic and nauseated with this. She denies any shortness of breath. She presented to the emergency department for further evaluation and said her pain did ease up some after the nitroglycerin patch was placed. However it continued to bother her some. She reports after IV fluid was started it continued to ease up and this morning became completely pain free. EKG shows sinus rhythm with heart rate of 67 and no evidence of ST changes. Her blood pressure was slightly elevated on admission at 156/92, is improved since then, it is now 133/77. property assessment monitor currently shows sinus rhythm with heart rates in the 80s. Troponins been negative 3. D-dimer was negative. Cholesterol and triglycerides are elevated. She reports she has been on a statin at home but is unsure what it is. Lipitor 20 mg nightly has been started. Hemoglobin A1c noted to be elevated at 6.9. All other labs have been unremarkable. Chest x-ray without abnormality noted. June 22, 2017: Ms. Guzman is seen resting in bed on telemetry unit. She has been pain-free since yesterday morning. She denies any shortness of breath or palpitations. Vital signs been stable throughout the night. This morning' s labs are unremarkable. She would like to undergo heart catheterization today rather than having a stress test. Exam (Progress Note) - Constitutional Vitals: Period Temp Pulse Resp BP Sys/Schneider Pulse Ox Last 24 Hr 96.3 F-97.9 F 61-68 16-20 133-146/71-82 95-100 General appearance: normal weight, no acute distress - Head Head exam: Absent: abrasion, hematoma - Eye Eye exam: Absent: periorbital swelling, laceration to eyelids Pupils: Present: LEN - Neck Neck exam: Absent: tenderness - Respiratory Respiratory exam: Present: clear to auscultation bilaterally. Absent: accessory muscle use, chest wall tenderness - Cardiovascular Cardiovascular exam: Present: regular rate and rhythm - GI/Abdominal GI/Abdominal exam: Present: normal bowel sounds, soft. Absent: distended, tenderness - Extremities Exam Extremities exam: Present: other (good pedal pulses). Absent: calf tenderness, edema - Neurological Exam Neurological exam: Present: alert, oriented X3 - Psychiatric Psychiatric exam: Present: normal affect, normal mood - Skin Skin exam: Present: warm, dry Result/EKG - Labs CBC & BMP: 06/22/17 05:32 06/22/17 05:32 Lab Results: I have reviewed the past 24 hour labs Labs: Laboratory Results - last 24 hr 06/21/17 06/21/17 06/21/17 13:31 13:31 13:31 WBC RBC Hgb Hct MCV MCH MCHC RDW Plt Count MPV Neut % (Auto) Lymph % (Auto) [place] % (Auto) Eos % (Auto) Baso % (Auto) Neut # (Auto) Lymph # (Auto) [place] # (Auto) Eos # (Auto) Baso # (Auto) Immature Gran % Nucleated RBC % Immature Gran # Nucleated RBCs # Immature Plt Fraction D-Dimer, Quantitative <= 0.5 Sodium Potassium Chloride Carbon Dioxide Anion Gap BUN Creatinine GFR Calculation BUN/Creatinine Ratio Glucose Calculated Osmolality Calcium Troponin I < 0.015 Free T4 0.82 TSH 3rd Generation 0.556 06/22/17 06/22/17 05:32 05:32 WBC 7.1 RBC 4.53 Hgb 13.1 Hct 38.9 MCV 85.9 L MCH 29 MCHC 33.7 RDW 13.3 Plt Count 272 MPV 9.8 Neut % (Auto) 46.9 Lymph % (Auto) 42.5 [place] % (Auto) 6.9 Eos % (Auto) 2.8 Baso % (Auto) 0.6 Neut # (Auto) 3.4 Lymph # (Auto) 3.0 [place] # (Auto) 0.5 Eos # (Auto) 0.2 Baso # (Auto) 0.0 Immature Gran % 0.3 Nucleated RBC % 0.0 Immature Gran # 0.02 Nucleated RBCs # 0.00 Immature Plt Fraction 0.0 D-Dimer, Quantitative Sodium 140 Potassium 4.2 Chloride 107 Carbon Dioxide 28 Anion Gap 9.2 BUN 15 Creatinine 0.80 GFR Calculation 85 BUN/Creatinine Ratio 18.00 Glucose 105 Calculated Osmolality 279.4 Calcium 8.8 Troponin I Free T4 TSH 3rd Generation - EKG EKG results: interpreted by me EKG shows: sinus rhythm I, Jai Vasquez MD, personally performed the services described in this documentation, ascribed by Mary Egan RN in my presence, and it is both accurate and complete 926 .
[2017-06-22] MEDS: ASPIRIN EC 81 MG TABLET PO SCH (10:04)
[2017-06-22] MEDS: PANTOPRAZOLE 40 MG TABLET PO SCH (10:04)
[2017-06-22] MEDS ORDERED: diphenhydrAMINE CAP 50 MG CAPSULE PO ONE (10:21)
[2017-06-22] MEDS ORDERED: DIAZEPAM 5 MG TABLET PO ONE (10:21)
[2017-06-22] MEDS ORDERED: DIAZEPAM 5 MG TABLET ONE (10:23)
[2017-06-22] MEDS ORDERED: MIDAZOLAM 2 MG/2 ML VIAL ONE (13:09)
[2017-06-22] MEDS ORDERED: HYDROmorphone 2 MG/1 ML VIAL ONE (13:09)
[2017-06-22] MEDS ORDERED: LIDOCAINE 1% 20 ML VIAL ONE (13:09)
[2017-06-22] MEDS ORDERED: ENOXAPARIN 60 MG/0.6 ML SYRINGE ONE (13:33)
[2017-06-22] MEDS ORDERED: NITROGLYCERIN DRIP 50 MG/250 ML BOTTLE IV ONE (13:51)
[2017-06-22] MEDS ORDERED: CLOPIDOGREL 300 MG TABLET ONE (14:02)
--- NOTE | 2017-06-22 14:14 | Cardiac Catheterization ---
Date of Procedure:: 06/22/17 Post-op diagnosis: same Procedure: Procedure performed: 1. Left heart catheterization 2. Coronary angiography 3. Left ventriculography 4. Angioplasty of ostial LAD disease (1.5 x 15 balloon) 5. Right femoral arteriotomy closed with Angio-Seal device Brief clinical summary: Ms. Villegas is a 51-year-old with chest pain and dyspnea for a couple of days to rule out for SD. Description of procedure: After obtaining informed consent, the right groin was prepped and draped in the usual sterile fashion. Next a short 6 Nepali sheath was placed in the right femoral artery using a modified Seldinger technique, after the patient received IV sedation and local anesthetic. Next a JL4 catheter was advanced over a guidewire under fluoroscopic guidance, and was engaged to the left coronary artery after which angiography was performed in multiple views. This was then removed over a wire, and a JR4 catheter was advanced in similar fashion, and was engaged to the right coronary artery after which angiography was performed in multiple views. Next a bent pigtail catheter was advanced into the left ventricle, where hemodynamic measurements were obtained, and left ventriculography was performed. Percutaneous coronary intervention was then performed as described below. An angiogram of the sheath showed that it was inserted in the right common femoral artery in a vessel suitable for closure. Hemostasis was obtained with Angio-Seal device with no residual bleeding. The patient was transferred from the quality lab technician in good condition without complication. Percutaneous coronary intervention: The patient was given 0.7 mg/kg of IV Lovenox prior to procedure. She was already on aspirin. She was loaded with 600 of the Plavix into the procedure. An EBU 3.5 guiding cath was advanced engaged left coronary artery. Next a pro-water wire was advanced would not cross in the LAD proper. Therefore I changed to a PT Graphix wire and with some difficulty I was able to advance into the LAD midportion. I then advanced a 1.5 x 15 balloon and performed multiple pressures abdominal and later above rated burst pressure at the ostium and proximal portion of the LAD. This restored flow with the vessel did not appear to be bigger than 1.5 mm. Of note during the procedure I did give her 150 mcg of intracoronary nitroglycerin with no change in the vessel size. Therefore for stenting was not appropriate given the small size of the vessel and not having a stent small enough for the vessel. She tolerated procedure well without complication. Coronary angiography: Left main coronary is normal developed and free disease. The LAD has a subtotal 99% ostial stenosis with EMILY I flow. On the RCA shots predominant flow is from right to left collaterals. There are couple of tiny diagonal branches. The LAD is quite small. The circumflex is large with a very large OM1 and then a thin OM 2 and OM 3 branch being noted. There are only mild irregularities of most of the circumflex system. The right quires a dominant vessel is large an average caliber. Gives off an average caliber long PDA and a posterior lateral branch. There is a less than 30% mid RCA stenosis. Left ventriculogram: Left ventricle is normal size with normal LV systolic function. This project fraction 55%. There is no clear wall motion normality. Impression: 1. Right dominant system 2. Single-vessel coronary artery disease with 99% subtotal occlusion of the ostial LAD in a long thin vessel filling more by [id number] collaterals 3. Status post angioplasty of ostial to proximal ID with 1.5 x 15 balloon restoring normal flow but with 50% residual stenosis. Recommendation and discussion: Ms. 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 The ostial LAD is too small to stent, and so I think medical therapy is best. She does have pretty good collaterals from the right to left. I did give her Plavix although this could be discontinued early as she has good collaterals and I suspect the ostial LAD will be occluded. She will continue baby aspirin should avoid squatting strain lifting for the next week Anesthesia: minimal conscious sedation Surgeon / Physician: Gulshan Veras Forge Operator Helper: other Estimated blood loss: minimal Specimens: none sent Condition: stable Disposition: floor - Medications / Follow-up
--- NOTE | 2017-06-22 15:22 | EKG Report ---
Stationary ECG Study [facility] Test Date: 06/22/2017 3:00:41 PM Pat Name: CORDELL KEATING Department: Room: 270 Gender: F Claims Processor: : 1965 Requested by: Gulshan Robert Order Number: [id number] Reading MD: SALLY MILLIGAN Intervals [place] Rate: 56 P: 63 IA: 180 QRS: 50 QRSD: 90 T: 46 QT: 405 QTc: 396 Interpretive Statements SINUS RHYTHM Electronically Signed On 06-22-17 17:24:36 CDT by SALLY MILLIGAN [email or web address]
[2017-06-22] MEDS ORDERED: ALUM/MAG/SIMETH/LIDO VISC 1:1 30 ML BOTTLE PO ONE (15:31)
[2017-06-22] MEDS ORDERED: MORPHINE 2 MG/1 ML SYRINGE IV ONE (15:31)
[2017-06-22 15:43] LABS: Troponin I Only < 0.015 NG/ML (0.00-0.045)
--- NOTE | 2017-06-22 15:55 | EKG Report ---
Stationary ECG Study [facility] Test Date: 06/22/2017 3:25:34 PM Pat Name: CORDELL KEATING Department: Room: 270 Gender: F Regional Branch Manager: : 1965 Requested by: Sally Vasquez Order Number: [id number] Reading MD: SALLY VASQUEZ Intervals [place] Rate: 63 P: 65 MS: 180 QRS: 45 QRSD: 91 T: 39 QT: 400 QTc: 407 Interpretive Statements SINUS RHYTHM Electronically Signed On 06-22-17 17:21:37 CDT by SALLY VASQUEZ [email or web address]
--- NOTE | 2017-06-22 15:57 | Hospitalist Progress Note ---
Assessment and Plan (1) Chest pain Status: Acute Assessment and plan: 06/21/2017: I have low clinical suspicion that patient's chest pain episode represents acute coronary syndrome. Recommend continued telemetry monitoring, cycle cardiac enzymes, follow-up repeat 12-lead EKG and echocardiogram. I requested cardiology consultation. Patient requests diagnostic left heart catheterization because she is concerned with the false negative nuclear medicine stress test rate. She is without any chest discomfort at the time of my interview and exam. Her is at bedside at the time of my interview and exam today. Patient's d-dimer is normal range making acute thromboembolism less likely to be the cause of patient's chest pain complaints. 06/22/2017: Patient completed angioplasty of ostial LAD lesion today. Current Visit: Yes (2) Hypothyroid Status: Chronic Assessment and plan: 06/21/2017: Patient has normal range TSH 0.556 and free T4 0.82. She has a history of hypothyroidism but records do not indicate that she takes Synthroid supplementation. Clarify this history. 06/22/2017: Clinically stable. Current Visit: Yes (3) Dyslipidemia Status: Chronic Assessment and plan: 06/21/2017: Patient denies known history of dyslipidemia. Patient's fasting lipid panel measured today total cholesterol 218, LDL 115, HDL 40, triglycerides 453. I recommend the patient receive statin dosing and repeat lipid panel within the next 3 months. She should also receive instructions to improve dietary modification to further reduce LDL, total cholesterol, and triglycerides. 06/22/2027: Tolerating statin therapy. Recheck labs in a few months as discussed above. Current Visit: Yes (4) ADHD (attention deficit hyperactivity disorder) Status: Chronic Assessment and plan: 06/21/2017: Patient states that she previously received Adderall but has not taken any stimulant medications since March 2017. She states that it was her personal choice to discontinue Adderall. 06/22/2017: No pharmacologic treatment received since March this year. Current Visit: Yes Hospitalist: Subjective Interval history: 06/22/2017: Patient interviewed and examined prior to planned left heart catheterization later today. She denies any chest pain at present. She offers no acute complaints. Exam - Constitutional Vitals: Period Temp Pulse Resp BP Sys/Schneider Pulse Ox Last 24 Hr 96.3 F-97.7 F 56-68 16-18 138-146/75-82 95-100 General appearance: normal weight - Head Head exam: Present: normal inspection - Eye Eye exam: Present: EOMI Pupils: Present: LEN - ENT ENT exam: Present: normal exam - Neck Neck exam: Present: normal inspection. Absent: meningismus, tenderness - Respiratory Respiratory exam: Present: clear to auscultation bilaterally - Cardiovascular Cardiovascular exam: Present: regular rate and rhythm - GI/Abdominal GI/Abdominal exam: Present: normal bowel sounds, soft. Absent: rebound - Extremities Exam Extremities exam: Present: normal inspection. Absent: calf tenderness, edema - Back Exam Back exam: Present: normal inspection - Neurological Exam Neurological exam: Present: alert, oriented X3 - Psychiatric Psychiatric exam: Present: normal affect - Skin Skin exam: Present: normal color, warm. Absent: rash Results - Labs CBC & BMP: 06/22/17 05:32 06/22/17 05:32 Specialty Discharge - Follow Up or Referrals
[2017-06-22] MEDS: ENOXAPARIN 40 MG/0.4 ML SYRINGE SUBCUT SCH (17:34)
[2017-06-22] MEDS: ATORVASTATIN 20 MG TABLET PO SCH (21:35)
[2017-06-23] MEDS: SODIUM CHLORIDE 0.45% 1,000 ML IV SCH (04:58)
[2017-06-23 06:42] LABS: Basophils # 0.1 10*3/uL (0.0-0.2); Basophils % 0.6 % (0.0-0.8); Eosinophils # 0.2 10*3/uL (0.0-0.87); Hematocrit 38.6 VOL% (35.7-47.0); Hemoglobin 12.9 GM/DL (12.0-16.0); Immature Granulocytes % 0.4 %; Immature Granulocytes Absolute 0.03 #; Lymphocytes # 2.3 10*3/uL (1.4-4.0); Lymphocytes % 28.9 % (21.3-54.2); Mean Corpuscular HGB Conc 33.4 GM/DL (32-36); Mean Corpuscular Hemoglobin 29 PG (27-34); Mean Corpuscular Volume 85.8 FL (87-102); Mean Platelet Volume 9.8 FL (9.6-12.0); Monocytes # 0.6 10*3/uL (0.11-0.8); Monocytes % 7.6 % (1.7-12.7); Neutrophils # 4.8 10*3/uL (1.4-7.4); Neutrophils % 60.5 % (38.7-73.9); Platelet Count 259 T/CUMM (130-400); Red Cell Distribution Width 13.2 % (9.3-17.3); White Blood Count 7.9 T/CUMM (4-12)
--- NOTE | 2017-06-23 07:14 | EKG Report ---
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
[2017-06-23 07:19] LABS: Blood Urea Nitrogen 15 MG/DL (7-18); Calcium 8.3 MG/DL (8.5-10.1); Glucose 82 MG/DL (74-106); Osmolality,Calculated 276.5 MOS/KG (273-304); Potassium 4.2 MMOL/L (3.5-5.1); Sodium 139 MMOL/L (136-145); Troponin I Only < 0.015 NG/ML (0.00-0.045)
--- NOTE | 2017-06-23 08:14 | XRay Report ---
XR ankle 2V RT Indication: Pain with swelling to top of right foot Comparison: None Technique: Frontal and lateral views of the right ankle Findings: Mild degenerative change of the right tibiotalar joint. No acute fracture or dislocation demonstrated. IMPRESSION: As above. PROCEDURE INTERPRETED AT [facility] DEPARTMENT OF RADIOLOGY Final Report Signed by: Dr Camron Bah
[2017-06-23 08:23] VITALS: BP 127/77
[2017-06-23] MEDS ORDERED: CLOPIDOGREL 75 MG TABLET PO SCH (09:00)
--- NOTE | 2017-06-23 09:09 | Discharge Summary ---
<Caleb Maldonado - Last Filed: 06/23/17 09:07> Hospital Course - Hospital Course Hospital Course: Ms. Guzman is a 51 year old female who presented to the ED on 06/20/2017 with non-radiating, squeezing, left sided chest pain that started the previous night while in bed. Chest pain was constant but waxed and waned. It got worse while at work. She took two aspirin and decided to come into the ER for further evaluation. She was admitted with ACS and had serial enzymes and EKGs performed. Cardiology was consulted and discussed options for a cardiac stress test vs a left heart catheterization. Given the patient's family history of heart disease and hemorrhage, the patient opted for a LHC which the air operations manager agreed to proceed with. She underwent a LHC on 06/22/2017 which revealed: 1. Right dominant system 2. Single-vessel coronary artery disease with 99% subtotal occlusion of the ostial LAD in a long thin vessel filling more by [id number] collaterals 3. Status post angioplasty of ostial to proximal ID with 1.5 x 15 balloon restoring normal flow but with 50% residual stenosis. The ostial LAD is too small to stent, and so cardiology thinks medical therapy is best. She will be discharged on Plavix and daily aspirin. She has been instructed to avoid squatting and strenuous activity for 10 days. She should follow up with her air operations manager in 1-2 weeks. - Time spent with patient Time with patient DS: Greater than 30 minutes Diagnosis - Discharge Diagnosis (1) Chest pain Status: Acute (2) Hypothyroid Status: Chronic (3) ADHD (attention deficit hyperactivity disorder) Status: Chronic Specialty Discharge - Follow Up or Referrals Follow up with: Jai Vasquez MD [Physician] - (07/06/18 12:40 lab and 1:00 appointment) Discharge Plan - Discharge Data Disposition: Disch To Home/Self Care - Discharge Medications New Aspirin EC Tab 81 mg PO DAILY #30 tablet Clopidogrel [Plavix] 75 mg PO DAILY #30 tablet Nitroglycerin [Nitroglycerin SL Tab] 0.4 mg SL Q5M PRN #30 tablet PRN Reason: Angina Pravastatin [Pravachol] 20 mg PO BEDTIME #30 tablet Fenofibrate [Tricor] 160 mg PO DAILY #30 tablet Discontinued Butalb/Acetaminophen/Caffeine [Fioricet 50-300-40 mg Capsule] 1 each PO Q6- 8H #20 capsule - Follow Up or Referral Follow Up: Jai Vasquez MD [Physician] - (07/06/18 12:40 lab and 1:00 appointment) - Forms/Instructions Instructions: Left Heart Catheterization (DC), Coronary Angioplasty (DC), Heart Healthy Diet (GEN) Exam - Constitutional Vitals: Period Temp Pulse Resp BP Sys/Schneider Pulse Ox Last 24 Hr 96.9 F-97.7 F 59-81 16-20 114-148/54-80 95-96 Discharge Results Labs on day of discharge: Labs from last 24 hours 06/23/17 06/23/17 06/22/17 04:25 04:25 14:44 WBC 7.9 RBC 4.50 Hgb 12.9 Hct 38.6 MCV 85.8 L MCH 29 MCHC 33.4 RDW 13.2 Plt Count 259 MPV 9.8 Neut % (Auto) 60.5 Lymph % (Auto) 28.9 [place] % (Auto) 7.6 Eos % (Auto) 2.0 Baso % (Auto) 0.6 Neut # (Auto) 4.8 Lymph # (Auto) 2.3 [place] # (Auto) 0.6 Eos # (Auto) 0.2 Baso # (Auto) 0.1 Immature Gran % 0.4 Nucleated RBC % 0.0 Immature Gran # 0.03 Nucleated RBCs # 0.00 Immature Plt Fraction 0.0 Sodium 139 Potassium 4.2 Chloride 106 Carbon Dioxide 27 Anion Gap 10.2 BUN 15 Creatinine 0.70 GFR Calculation 100 BUN/Creatinine Ratio 21.00 H Glucose 82 Calculated Osmolality 276.5 Calcium 8.3 L Total Creatine Kinase 133 D 174 D CK-MB (CK-2) 2.5 3.3 Troponin I < 0.015 < 0.015 DS: Provider Date of admission: 06/20/17 15:41 Primary care physician: Morena Hong Attending physician on admission: Rodney Manuel MD Consults: 06/21/17 12:22 Consult to Physician [CONS] Routine Comment: Assist evaluation chest pain Consulting Provider: Jai Vasquez Consult to Specialist Group: Cardiology Person Notified: REYNALDO Date Notified: 06/21/17 Time Notified: 13:10 06/22/17 14:05 Consult to Cardiac Rehabilitation [CONS] Routine Reason for Cardiac Rehabilitation: Appt Out Pt Cardiac Rehab Consult Comment: cad; ptca Discharging clinician: Caleb HERNANDEZ Expected date of discharge: 06/23/17 <Davis Dasilva III - Last Filed: 06/23/17 12:54> Diagnosis - Discharge Diagnosis (1) Chest pain Status: Resolved (2) Hypothyroid Status: Chronic (3) Dyslipidemia Status: Chronic (4) ADHD (attention deficit hyperactivity disorder) Status: Chronic Discharge Plan - Discharge Data Condition at Discharge: Stable Discharge Diet: low fat, low cholesterol Activity: other (No bending at the waist or heavy lifting for at the next 1 week ) Hygiene: no restrictions Weight Bearing at Discharge: full weight bearing Contact your physician if you experience:: fever over 101, Redness or swelling, Bleeding
[2017-06-23] MEDS: ASPIRIN EC 81 MG TABLET PO SCH (09:13)
[2017-06-23] MEDS: PANTOPRAZOLE 40 MG TABLET PO SCH (09:13)
--- NOTE | 2017-06-23 09:27 | Cardiology Progress Note ---
<Symone Noble E - Last Filed: 06/23/17 09:29> Assessment and Plan - Time spent with patient Time spent with patient: Greater than 30 minutes (1) CAD (coronary artery disease) Status: Chronic Assessment and plan: SEE PLAN OF CARE LISTED BELOW (2) Chest pain Status: Resolved Assessment and plan: SEE PLAN OF CARE LISTED BELOW (3) ADHD (attention deficit hyperactivity disorder) Status: Chronic Assessment and plan: SEE PLAN OF CARE LISTED BELOW (4) Dyslipidemia Status: Chronic Assessment and plan: SEE PLAN OF CARE LISTED BELOW Cardiology - PN: Subj Interval history: Pole Classifier: New to Dr. Vasquez PCP: Caridad Olivares NP JUNE 20, 2017: Ms. Guzman is a 51 year old female who has never seen a enterprise applications manager. In 1998 she was referred for a PET scan related to some chest pain, but she says that it was found to be okay and she never had to have any follow-up. She denies ever having a heart catheterization. She has been on Adderall for 30 years and has been weaned off of this since early April of this year. Medical history includes ADHD, dyslipidemia, and thyroid disorder. Family history is positive for mother with cancer and diabetes. Surgical history includes appendectomy, hysterectomy, cholecystectomy, tonsillectomy. She reports she is a lifetime non-smoker and rarely uses alcohol. Two nights before admission she reports having some "sharp pinpricks" in the left side of her chest. Yesterday she began to have a squeezing type pressure to the left side of her chest. She denies any radiation and rates it a 10 on a scale of 1-10. She noted no triggers or alleviators. The pain is reproducible with deep breathing or palpation. She also reports that she was diaphoretic and nauseated with this. She denies any shortness of breath. She presented to the emergency department for further evaluation and said her pain did ease up some after the nitroglycerin patch was placed. However it continued to bother her some. She reports after IV fluid was started it continued to ease up and this morning became completely pain free. EKG shows sinus rhythm with heart rate of 67 and no evidence of ST changes. Her blood pressure was slightly elevated on admission at 156/92, is improved since then, it is now 133/77. head of cytogenetics currently shows sinus rhythm with heart rates in the 80s. Troponins been negative 3. D-dimer was negative. Cholesterol and triglycerides are elevated. She reports she has been on a statin at home but is unsure what it is. Lipitor 20 mg nightly has been started. Hemoglobin A1c noted to be elevated at 6.9. All other labs have been unremarkable. Chest x- ray without abnormality noted. JUNE 22, 2017: Patient underwent cardiac catheterization, performed by Dr. Veras, with the following impression noted: Impression: 1. Right dominant system 2. Single-vessel coronary artery disease with 99% subtotal occlusion of the ostial LAD in a long thin vessel filling more by [id number] collaterals 3. Status post angioplasty of ostial to proximal ID with 1.5 x 15 balloon restoring normal flow but with 50% residual stenosis. Recommendation and discussion of Dr. Veras include: Ms. 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 The ostial LAD is too small to stent, and so I think medical therapy is best. She does have pretty good collaterals from the right to left. I did give her Plavix although this could be discontinued early as she has good collaterals and I suspect the ostial LAD will be occluded. She will continue baby aspirin should avoid squatting strain lifting for the next week. JUNE 23, 2017: Echocardiogram revealed EF: 60%, no significant valvular abnormality. Overnight, patient has done well without chest pain, heaviness, tightness. She has been ambulating without difficulty and she is anxious for release home. Right groin is soft, free of hematoma or bruit. 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 She will continue to see NOLAN Olivares after discharge. She will be given a follow-up appoint with Dr. Vasquez as well. Prefer this appointment to be within the next 1-2 weeks as again she will be leaving out of state in 2 weeks for work. We had a long discussion regarding her discharge medications. In the past, she was taking Pravachol and fenofibrate. Together, these medications seemed to control her cholesterol and triglycerides. Fenofibrate was discontinued and her triglycerides are over 400. At this time, I have recommended that she return to her prior dosing schedule of Pravachol and fenofibrate at discharge. Blood pressure will allow for introduction of an antihypertensive at this time. She would like to follow-up with Ms. Olivares for adjustment of these medicines. I think this is reasonable. New cardiac discharge medications will include: Aspirin 81 mg orally daily Plavix 75 mg orally daily Pravastatin 20 mg orally each evening Fenofibrate 160 mg orally daily Nitroglycerin 0.4 mg sublingual as needed chest pain. Exam (Progress Note) - Constitutional Vitals: Period Temp Pulse Resp BP Sys/Schneider Pulse Ox Last 24 Hr 96.9 F-97.7 F 59-81 16-20 114-148/54-82 95-99 Exam: General: [Appears well with no apparent distress.] [Pleasant and cooperative. ] [Appears comfortable.] HEENT: [PERRL, normocephalic, atraumatic. Mucous membranes moist. No jaundice noted. Conjunctiva moist and clear, sclerae anicteric] Neck: No JVD/HJR, no thyromegaly or lymphadenopathy noted. No carotid bruit appreciated Cardiac: [Regular rate and rhythm.] [No murmur rub or gallop.] Lungs: [Clear to auscultation without accessory muscle use to assist the respiratory pattern.] Not requiring oxygen. Abdomen: Soft, bowel sounds normoactive. Nontender and nondistended. No abdominal bruit or thrill noted. No masses noted. Musculoskeletal: No fluid collection. Decreased range of motion is noted. Extremities: Right groin soft, free of hematoma or bruit. No clubbing, cyanosis noted. [ No edema noted.] Upper extremity pulses 2+. Lower extremity pulses 2+. Capillary refill less than 3 seconds. Skin: No unusual lesions or rashes. No skin breakdown appreciated. Neuro: Awake, alert and oriented 3. Moves all extremities well without hemiparesis or paralysis. No essential tremor is appreciated. Result/EKG - Labs CBC & BMP: 06/23/17 04:25 06/23/17 04:25 Lab Results: I have reviewed the past 24 hour labs Labs: Laboratory Results - last 24 hr 06/22/17 06/23/17 06/23/17 14:44 04:25 04:25 WBC 7.9 RBC 4.50 Hgb 12.9 Hct 38.6 MCV 85.8 L MCH 29 MCHC 33.4 RDW 13.2 Plt Count 259 MPV 9.8 Neut % (Auto) 60.5 Lymph % (Auto) 28.9 [place] % (Auto) 7.6 Eos % (Auto) 2.0 Baso % (Auto) 0.6 Neut # (Auto) 4.8 Lymph # (Auto) 2.3 [place] # (Auto) 0.6 Eos # (Auto) 0.2 Baso # (Auto) 0.1 Immature Gran % 0.4 Nucleated RBC % 0.0 Immature Gran # 0.03 Nucleated RBCs # 0.00 Immature Plt Fraction 0.0 Sodium 139 Potassium 4.2 Chloride 106 Carbon Dioxide 27 Anion Gap 10.2 BUN 15 Creatinine 0.70 GFR Calculation 100 BUN/Creatinine Ratio 21.00 H Glucose 82 Calculated Osmolality 276.5 Calcium 8.3 L Total Creatine Kinase 174 D 133 D CK-MB (CK-2) 3.3 2.5 Troponin I < 0.015 < 0.015 - Diagnostic Findings Procedure: Chest x-ray: report reviewed by me - EKG EKG results: interpreted by wi EKG shows: sinus rhythm Specialty Discharge - Follow Up or Referrals Follow up with: Jai Vasquez MD [Physician] - (07/06/18 12:40 lab and 1:00 appointment) <Jai Vasquez - Last Filed: 06/23/17 21:18> Assessment and Plan (1) Chest pain Status: Resolved (2) Dyslipidemia Status: Chronic (3) ADHD (attention deficit hyperactivity disorder) Status: Chronic (4) Hypothyroid Status: Chronic Exam (Progress Note) - Constitutional Vitals: Period Temp Pulse Resp BP Sys/Schneider Pulse Ox Last 24 Hr 96.9 F-97.7 F 62-81 18-18 114-129/67-77 95-96 Result/EKG - Labs CBC & BMP: 06/23/17 04:25 06/23/17 04:25 Labs: Laboratory Results - last 24 hr 06/23/17 06/23/17 04:25 04:25 WBC 7.9 RBC 4.50 Hgb 12.9 Hct 38.6 MCV 85.8 L MCH 29 MCHC 33.4 RDW 13.2 Plt Count 259 MPV 9.8 Neut % (Auto) 60.5 Lymph % (Auto) 28.9 [place] % (Auto) 7.6 Eos % (Auto) 2.0 Baso % (Auto) 0.6 Neut # (Auto) 4.8 Lymph # (Auto) 2.3 [place] # (Auto) 0.6 Eos # (Auto) 0.2 Baso # (Auto) 0.1 Immature Gran % 0.4 Nucleated RBC % 0.0 Immature Gran # 0.03 Nucleated RBCs # 0.00 Immature Plt Fraction 0.0 Sodium 139 Potassium 4.2 Chloride 106 Carbon Dioxide 27 Anion Gap 10.2 BUN 15 Creatinine 0.70 GFR Calculation 100 BUN/Creatinine Ratio 21.00 H Glucose 82 Calculated Osmolality 276.5 Calcium 8.3 L Total Creatine Kinase 133 D CK-MB (CK-2) 2.5 Troponin I < 0.015
[2017-06-23] MEDS ORDERED: PRAVASTATIN 20 MG TABLET PO SCH (21:00)
[2017-06-24] MEDS ORDERED: FENOFIBRATE 160 MG TABLET PO SCH (09:00)
== END 2017-06-23 14:27 | disposition home or self-care (01) ==
LOC: N.ED 13:09 → N.EDINP 13:09 → SUATTDRO 15:41 → N.TELES 17:01
PROVIDERS: ADMIT Internal Medicine; ATTEND Internal Medicine
PROC: CLCCHCL (ICD-10-PCS; 2017-06-22 12:45)

== ENCOUNTER 2020-02-21 07:44 | Observation (INO) ==
[2020-02-21] MEDS ORDERED: ASPIRIN 325 MG TABLET PO STA (08:00)
[2020-02-21 08:21] LABS: Basophils # 0.1 10*3/uL (0.0-0.2); Basophils % 0.9 % (0.0-0.8); Eosinophils # 0.1 10*3/uL (0.0-0.87); Eosinophils % 1.8 % (0.00-10.9); Hemoglobin 13.5 GM/DL (12.0-16.0); Immature Granulocytes % 0.3 %; Immature Granulocytes Absolute 0.02 #; Lymphocytes # 2.1 10*3/uL (1.4-4.0); Lymphocytes % 27.4 % (21.3-54.2); Mean Corpuscular HGB Conc 31.4 GM/DL (32-36); Mean Corpuscular Volume 91.9 FL (87-102); Mean Platelet Volume 9.7 FL (9.6-12.0); Monocytes % 4.8 % (1.7-12.7); Neutrophils % 64.8 % (38.7-73.9); Platelet Count 385 T/CUMM (130-400); Red Blood Count 4.68 MC/CUMM (3.8-5.5); Red Cell Distribution Width 12.7 % (9.3-17.3); White Blood Count 7.7 T/CUMM (4-12)
[2020-02-21 08:39] LABS: Calcium 9.9 MG/DL (8.5-10.1); Osmolality,Calculated 284.1 MOS/KG (273-304)
[2020-02-21] MEDS ORDERED: NITROGLYCERIN SL 0.4 MG TABLET SL PRN (11:24)
[2020-02-21] MEDS ORDERED: ENOXAPARIN 60 MG/0.6 ML SYRINGE SUBCUT STA (11:24)
[2020-02-21] MEDS ORDERED: MAGNESIUM SULF RIDER 2 GM in PREMIX 1 EACH IV PRN (11:25)
[2020-02-21] MEDS ORDERED: ONDANSETRON 4 MG/2 ML VIAL IV PRN (11:25)
[2020-02-21] MEDS ORDERED: POTASSIUM CHLORIDE 20 MEQ TABLET PO PRN (11:25)
[2020-02-21] MEDS ORDERED: ZALEPLON 5 MG CAPSULE PO PRN (11:25)
[2020-02-21] MEDS ORDERED: DEXTROSE 50% 25 GM/50 ML VIAL IV PRN (11:25)
[2020-02-21] MEDS ORDERED: GLUCAGON 1 MG VIAL IM PRN (11:25)
[2020-02-21] MEDS ORDERED: MORPHINE 4 MG/1 ML VIAL IV PRN (11:25)
[2020-02-21] MEDS ORDERED: MAGNESIUM SULF RIDER 4 GM in PREMIX 1 EACH IV PRN (11:25)
[2020-02-21] MEDS ORDERED: LACTULOSE 20 GM/30 ML UDCUP PO PRN (13:08)
[2020-02-21] MEDS ORDERED: guaiFENesin/DM ER 600-30 MG TABLET PO PRN (13:08)
[2020-02-21] MEDS ORDERED: ACETAMINOPHEN 325 MG TABLET PO PRN (13:08)
[2020-02-21] MEDS ORDERED: diphenhydrAMINE CAP 25 MG CAPSULE PO PRN (13:08)
[2020-02-21] MEDS ORDERED: BISACODYL 5 MG TABLET PO PRN (13:08)
[2020-02-21] MEDS ORDERED: DOCUSATE SODIUM 100 MG CAPSULE PO PRN (13:08)
[2020-02-21] MEDS ORDERED: NICOTINE 21 MG/24 HR PATCH TRANSDERM PRN (13:08)
[2020-02-21] MEDS ORDERED: ALUMINUM/MAGNES/SIMETH MAX STR 30 ML UDCUP PO PRN (13:08)
[2020-02-21] MEDS ORDERED: SIMETHICONE CHEW 125 MG TABLET PO PRN (13:08)
[2020-02-21] MEDS ORDERED: hydrALAZINE 20 MG/1 ML VIAL IV PRN (13:08)
[2020-02-21] MEDS ORDERED: CALCIUM CARBONATE CHEW 500 MG TABLET PO PRN (13:08)
[2020-02-21] MEDS: ENOXAPARIN 60 MG/0.6 ML SYRINGE SUBCUT SCH ×2 (14:00→21:16)
[2020-02-21] MEDS: NAPROXEN 250 MG TABLET PO SCH ×2 (14:00→21:14)
[2020-02-21] MEDS: INSULIN LISPRO 100 UNIT/ML SUBCUT SCH ×3 (14:01→21:20)
[2020-02-21] MEDS: SODIUM CHLORIDE 0.45% 1,000 ML IV SCH ×2 (14:01→22:22)
[2020-02-21] MEDS: ACETAMINOPHEN 325 MG TABLET PO SCH ×2 (14:06→21:20)
[2020-02-21 16:43] LABS: Troponin I < 0.015 NG/ML (0.00-0.045)
[2020-02-21 16:57] LABS: Apearance,Urine CLOUDY (Clear); Bilirubin,Urine Negative (Negative); Blood, Urine Negative (Negative); Glucose,Urine (UA) Negative (Negative); Ketones,Urine Negative (Negative); Nitrite,Urine Negative (Negative); Protein,Urine Negative; RBC,Urine 16 /HPF (0-4); Urine Color Yellow (Yellow); Urine Urobilinogen < 2.0 EU/DL (0.2-1.0)
[2020-02-21] MEDS ORDERED: SIMVASTATIN 20 MG TABLET PO SCH (21:00)
[2020-02-21] MEDS ORDERED: NON-FORMULARY MEDICATION (Liraglutide [Victoza 3-Pak] 1.2 MG) SUBCUT SCH (21:00)
[2020-02-22 05:08] LABS: Basophils # 0.1 10*3/uL (0.0-0.2); Eosinophils # 0.3 10*3/uL (0.0-0.87); Eosinophils % 4.6 % (0.00-10.9); Hematocrit 39.6 VOL% (35.7-47.0); Hemoglobin 12.2 GM/DL (12.0-16.0); Immature Granulocytes % 0.3 %; Immature Granulocytes Absolute 0.02 #; Lymphocytes # 3.6 10*3/uL (1.4-4.0); Lymphocytes % 51.9 % (21.3-54.2); Mean Corpuscular HGB Conc 30.8 GM/DL (32-36); Mean Corpuscular Volume 91.9 FL (87-102); Mean Platelet Volume 10.5 FL (9.6-12.0); Monocytes % 7.9 % (1.7-12.7); Neutrophils % 34.3 % (38.7-73.9); Platelet Count 282 T/CUMM (130-400); Red Blood Count 4.31 MC/CUMM (3.8-5.5); Red Cell Distribution Width 12.7 % (9.3-17.3); White Blood Count 6.9 T/CUMM (4-12)
[2020-02-22 05:45] LABS: Blood Urea Nitrogen 18 MG/DL (7-18); Estimated Glom Filtration Rate 71 ML/MIN; Glucose 95 MG/DL (74-106); Osmolality,Calculated 284.1 MOS/KG (273-304); Troponin I < 0.015 NG/ML (0.00-0.045)
[2020-02-22 06:03] LABS: Risk Ratio 3.38; VLDL CHOLESTEROL 40.8 MG/DL
[2020-02-22 06:04] LABS: Eosinophils 2 % (0-10); Lymphocytes 50 % (20-55); Segmented Neutrophils 40 % (50-85); Total Cells Counted 100
[2020-02-22 06:05] LABS: Platelet Estimate Normal; Reactive Lymphocytes 1+
[2020-02-22] MEDS: SODIUM CHLORIDE 0.45% 1,000 ML IV SCH ×2 (06:19→11:43)
[2020-02-22 08:22] VITALS: BP 120/71
[2020-02-22] MEDS ORDERED: CLOPIDOGREL 75 MG TABLET PO SCH (09:00)
[2020-02-22] MEDS ORDERED: PANTOPRAZOLE 40 MG TABLET PO SCH (09:00)
[2020-02-22] MEDS ORDERED: FENOFIBRATE 160 MG TABLET PO SCH (09:00)
[2020-02-22] MEDS ORDERED: LEVOTHYROXINE 100 MCG TABLET PO SCH (09:00)
[2020-02-22] MEDS ORDERED: ASPIRIN EC 81 MG TABLET PO SCH (09:00)
[2020-02-22] MEDS: NAPROXEN 250 MG TABLET PO SCH (09:55)
[2020-02-22] MEDS: ENOXAPARIN 60 MG/0.6 ML SYRINGE SUBCUT SCH (09:56)
[2020-02-22] MEDS: INSULIN LISPRO 100 UNIT/ML SUBCUT SCH ×2 (09:56→12:50)
[2020-02-22] MEDS: ACETAMINOPHEN 325 MG TABLET PO SCH (10:20)
[2020-02-22] MEDS ORDERED: DEXTROSE 50% 25 GM/50 ML VIAL IV PRN (11:32)
== END 2020-02-22 12:49 | disposition home or self-care (01) ==
LOC: N.ED 07:44 → N.EDINP 11:25 → INTOOBSV 11:25 → N.TELEN 11:50
PROVIDERS: ADMIT Internal Medicine Cardiovascular Disease; ATTEND Internal Medicine Cardiovascular Disease